=== PATIENT | male | born 1965 | race Caucasian/White ===

== ENCOUNTER 2017-11-12 11:11 | Emergency (ER) | payer OTHER ==
[2017-11-12 12:42] VITALS: BP 122/76
--- NOTE | 2017-11-12 12:54 | UC ---
Skin Complaint HPI - HPI Summary HPI Summary: Pt reports that he was exposed to either poison arlin or poison oak 1 month ago. Pt reports that he wore same shirt a couple days ago and now rash has returned to anterior abdomen. Rash is pruritic and blister like - History of Current Complaint Chief Complaint: UCRash Time Seen by Provider: 11/12/17 12:39 Stated Complaint: POISON ARLIN (1MO) Hx Obtained From: Patient Onset/Duration: Gradual Onset, Lasting Days, Still Present Skin Exposure Onset/Duration: Days Ago Timing: Constant Onset Severity: Mild Current Severity: Moderate Pain Intensity: 0 Location: Discrete - abdomen Character: Pruritus, Raised Aggravating Factor(s): Touch Alleviating Factor(s): Nothing Associated Signs & Symptoms: Positive: Rash Related History: Possible Reaction to: Environmental Exposure - Allergy/Home Medications Allergies/Adverse Reactions: Allergies Allergy/AdvReac Type Severity Reaction Status Date / Time Penicillins Allergy Unknown Unknown Verified 11/12/17 12:32 Reaction Details Review of Systems Constitutional: Negative Skin: Rash Eyes: Negative ENT: Negative Respiratory: Negative Cardiovascular: Negative Gastrointestinal: Negative Genitourinary: Negative Motor: Negative Neurovascular: Negative Musculoskeletal: Negative Neurological: Negative Psychological: Negative Is Patient Immunocompromised?: No All Other Systems Reviewed And Are Negative: Yes PMH/Surg Hx/FS Hx/Imm Hx Previously Healthy: Yes - Surgical History Surgical History: Yes Surgery Procedure, Year, and Place: APPENDECTOMY - Family History Known Family History: Positive: Cardiac Disease - Social History Occupation: Employed Full-time Lives: With Family Alcohol Use: Occasionally Substance Use Type: None Smoking Status (MU): Never Smoked Tobacco Have You Smoked in the Last Year: No Physical Exam Triage Information Reviewed: Yes Appearance: Well-Appearing Vital Signs: Initial Vital Signs Temp 98 F 11/12/17 12:33 Pulse 64 11/12/17 12:33 Resp 16 11/12/17 12:33 BP 122/76 11/12/17 12:33 Pulse Ox 98 11/12/17 12:33 Vital Signs Reviewed: Yes Eye Exam: Normal ENT: Positive: Hearing grossly normal Dental Exam: Normal Neck exam: Normal Respiratory: Positive: No respiratory distress Musculoskeletal Exam: Normal Neurological Exam: Normal Psychological Exam: Normal Skin: Positive: rashes - abdomen with calamine lotion applied prior to visit, rash extends from right upper chest to right LQ to umbilicus Course/Dx - Differential Diagnoses - Skin Complaint Differential Diagnoses: Contact Dermatitis, Poison Arlin, Poison [place] - Diagnoses Provider Diagnoses: contact dermatitis. poison oak Discharge - Sign-Out/Discharge Documenting (check all that apply): Patient Departure - Discharge Plan Condition: Stable Disposition: HOME Prescriptions: predniSONE TAB* [Deltasone 10 MG TAB*] 30 mg PO DAILY #12 tab Patient Education Materials: Antihistamine (By mouth), Contact Dermatitis (DC) , Poison Arlin (ED) Referrals: Baljit Land MD [Primary Care Provider] - If Needed - Billing Disposition and Condition Condition: STABLE Disposition: Home
== END 2017-11-12 13:14 | disposition home or self-care (01) ==
LOC: UCCORT 11:11
DX: L23.7 Allergic contact dermatitis due to plants, except food (principal); Z88.0 Allergy status to penicillin
CPT/HCPCS: 99202; G0463

== ENCOUNTER 2018-01-09 09:46 | Emergency (ER) | payer OTHER ==
[2018-01-09 11:18] VITALS: BP 130/79
--- NOTE | 2018-01-09 11:47 | UC ---
Skin Complaint HPI - HPI Summary HPI Summary: 52-year-old male presents with pruritic lesions to the back of his hands and forearms. This should this initially started 10/18/2017 and he thought at that time that he may have come into contact with some poison audrey or poison oak. He was essentially seen at this facility on 11/12/2017 and started on a course of oral prednisone and oral antihistamines for itching. He states that his symptoms improved for about 2 weeks but then returned and has been present since that time. States the lesions off and begin as blisters and eventually crust over. He has used [id number] calamine lotion without any relief. Denies any fever, chills, swelling of the lips, tongue, or throat, difficulty breathing, changes in soaps, detergents, diet, or known environmental irritant exposure. - History of Current Complaint Chief Complaint: UCSkin Time Seen by Provider: 01/09/18 11:26 Stated Complaint: SKIN COMPLAINT POISON OAK PERSONAL Hx Obtained From: Patient Onset/Duration: Gradual Onset, Lasting Weeks Timing: Constant Onset Severity: Mild Current Severity: Mild Pain Intensity: 2 Location: Hand (Right) - And forearm, Hand (Left) - And forearm Character: Pruritus Aggravating Factor(s): Nothing Alleviating Factor(s): Nothing Associated Signs & Symptoms: Positive: Negative - Allergy/Home Medications Allergies/Adverse Reactions: Allergies Allergy/AdvReac Type Severity Reaction Status Date / Time Penicillins Allergy Unknown Unknown Verified 01/09/18 11:20 Reaction Details Home Medications: Home Medications ? Zyrtec Allergy Med 1 tab PO QPM 01/09/18 [History Confirmed 01/09/18] Naproxen Sodium [Naproxen 220 mg] 220 mg PO DAILY PRN 01/09/18 [History Confirmed 01/09/18] Review of Systems Constitutional: Negative Skin: Rash Eyes: Negative ENT: Negative Respiratory: Negative Is Patient Immunocompromised?: No All Other Systems Reviewed And Are Negative: Yes PMH/Surg Hx/FS Hx/Imm Hx Previously Healthy: Yes - denies significant past medical history - Surgical History Surgical History: Yes Surgery Procedure, Year, and Place: APPENDECTOMY - Family History Known Family History: Positive: Cardiac Disease - Social History Occupation: Employed Full-time Lives: With Family Alcohol Use: Occasionally Substance Use Type: None Smoking Status (MU): Never Smoked Tobacco Have You Smoked in the Last Year: No Physical Exam Triage Information Reviewed: Yes Appearance: Well-Appearing, No Pain Distress, Well-Nourished Vital Signs: Initial Vital Signs Temp 98 F 01/09/18 11:03 Pulse 67 01/09/18 11:03 Resp 20 01/09/18 11:03 BP 130/79 01/09/18 11:03 Pulse Ox 100 01/09/18 11:03 Vital Signs Reviewed: Yes Eyes: Positive: Conjunctiva Clear. Negative: Discharge ENT: Positive: Pharynx normal, Uvula midline Neck: Positive: Supple, Nontender, No Lymphadenopathy Respiratory: Positive: Lungs clear, Normal breath sounds, No respiratory distress Cardiovascular: Positive: RRR, No Murmur, Pulses Normal, Brisk Capillary Refill Neurological: Positive: Alert Skin: Positive: rashes - Patient has scattered discrete maculopapular lesions with crusting to bilateral dorsal hands and forearms. Nonpainful. No drainage noted. Course/Dx - Course Course Of Treatment: 52 year old male with history of recurrent pruritic lesions to his hands and forearms since 10/18/2017. He was initially evaluated on 11/12/2017 for this and treated with course of prednisone for possible exposure to poison audrey/oak with improvement in symptoms however symptoms returned without any risk of further exposure. With the improvement on steroids and reoccurrence without identifiable contact exposure it is likely his symptoms may be an immune modulated response however cannot rule out other potential causes. Will prescribe a topical steroid ointment to see if this improves symptoms and have him follow up with dermatology. - Differential Diagnoses - Skin Complaint Differential Diagnoses: Allergic Reaction, Contact Dermatitis, Local Allergic Reaction, Poison Audrey, Poison [place] - Diagnoses Provider Diagnoses: Dermatitis Discharge - Sign-Out/Discharge Documenting (check all that apply): Patient Departure All imaging exams completed and their final reports reviewed: No Studies - Discharge Plan Condition: Stable Disposition: HOME Prescriptions: Clobetasol 0.05% OINT* 1 applic TOPICAL BID 14 Days #1 tube Patient Education Materials: Dermatitis (ED) Referrals: Chad Sandhu MD [Primary Care Provider] - 01/18/18 (As scheduled.) Shailesh Waldron MD [Medical Doctor] - (Call for an appointment.) Additional Instructions: Start using clobetasol ointment to affected area twice daily. Do not use for more than 2 weeks. I have given you a referral to dermatology. Make sure you call to schedule an appointment. Your blood pressure in the clinic today was slightly elevated. Keep your appointment with your primary care provider as scheduled on January 18 to have blood pressure and lesions rechecked. Seek immediate medical attention if you develop any shortness of breath, swelling of the lips, tongue, throat, difficulty breathing, or any worsening of symptoms. - Billing Disposition and Condition Condition: STABLE Disposition: Home
== END 2018-01-09 11:53 | disposition home or self-care (01) ==
LOC: UCCORT 09:46
DX: L30.9 Dermatitis, unspecified (principal); Z88.0 Allergy status to penicillin
CPT/HCPCS: 99212; G0463